=== PATIENT | male | born 1940 | race Two or more races ===

== ENCOUNTER 2017-06-26 17:46 | Emergency (ER) | payer OTHER ==
[~2017-06-26] VITALS: Ht 175.3 cm; Wt 68.0 kg
[2017-06-26 18:41] VITALS: BP 136/78
[2017-06-26] MEDS ORDERED: MEPERIDINE HCL (25 MG/ML) 1ML VIAL IM ONE (19:45)
[2017-06-26] MEDS ORDERED: cefTRIAXone SOD 1,000 MG VL IM ONE (19:45)
[2017-06-26] MEDS ORDERED: ONDANSETRON HCL 4 MG/2 ML VIAL IM ONE (19:45)
[2017-06-26] MEDS ORDERED: HYDROcodone-ACET 10/325MG TAB PO ONE (20:00)
== END 2017-06-26 20:06 | disposition home or self-care (01) ==
LOC: ER 17:54
DX: K04.7 Periapical abscess without sinus (principal)
CPT/HCPCS: 96372; 99283; J0696

== ENCOUNTER → 2017-06-30 | Outpatient (CLI) | payer OTHER ==
[2017-06-30 13:46] LABS: Basophils # (auto) 0 uL; Basophils % (auto) 0.8 % (0.0-2.0); Eosinophils # (auto) 0.1 uL; Eosinophils % (auto) 1.8 % (0.0-7.0); Hematocrit 44.3 % (41.0-53.0); Hemoglobin 15.2 g/dL (13.5-17.5); Lymphocytes # (auto) 1.3 uL; Lymphocytes % (auto) 36.7 % (10.0-50.0); Mean Corpuscular Hemoglobin 30.8 pg (28.0-32.0); Mean Corpuscular Hgb Conc. 34.3 g/dL (32.0-36.0); Monocytes # (auto) 0.2 uL; Monocytes % (auto) 6.9 % (0.0-12.0); Neutrophils # (auto) 1.9 uL; Neutrophils % (auto) 53.8 % (37.0-80.0); Nucleated Red Blood Cells % 0.1 %; Platelet Count (auto) 161 10^3/uL (140-450); Red Blood Cells 4.92 10^6/uL (4.5-5.90); Red Cell Distribution Width 12.9 % (11.8-14.3); White Blood Cell 3.5 10^3/uL (4.4-10.8)
[2017-06-30 14:07] LABS: Albumin 3.7 g/dL (3.4-5.0); BUN/Creatinine Ratio 15.6; Bilirubin, Total 1.2 mg/dL (0.2-1.0); Calcium 8.5 mg/dL (8.5-10.1); Potassium 3.7 mmol/L (3.5-5.1); Total Protein 6.8 g/dL (6.4-8.2)
== END | disposition home or self-care (01) ==
LOC: LAB 13:17
DX: Z00.01 Encounter for general adult medical examination with abnormal findings (principal); I10 Essential (primary) hypertension
CPT/HCPCS: 36415; 80053; 80061; 82043; 83036; 84443; 85025

== ENCOUNTER 2017-07-09 02:57 | Emergency (ER) | payer OTHER ==
[~2017-07-09] VITALS: Ht 175.3 cm; Wt 81.6 kg
[2017-07-09 03:55] LABS: Basophils # (auto) 0 uL; Eosinophils # (auto) 0.1 uL; Eosinophils % (auto) 2.2 % (0.0-7.0); Hematocrit 40.9 % (41.0-53.0); Lymphocytes # (auto) 1.9 uL; Lymphocytes % (auto) 42.5 % (10.0-50.0); Mean Corpuscular Hemoglobin 30.7 pg (28.0-32.0); Mean Corpuscular Hgb Conc. 34.2 g/dL (32.0-36.0); Mean Corpuscular Volume 89.8 fL (80.0-100.0); Monocytes # (auto) 0.3 uL; Monocytes % (auto) 7.8 % (0.0-12.0); Neutrophils # (auto) 2.1 uL; Neutrophils % (auto) 46.5 % (37.0-80.0); Nucleated Red Blood Cells % 0.1 %; Platelet Count (auto) 201 10^3/uL (140-450); Red Blood Cells 4.55 10^6/uL (4.5-5.90); Red Cell Distribution Width 12.5 % (11.8-14.3); White Blood Cell 4.5 10^3/uL (4.4-10.8)
[2017-07-09 04:12] LABS: Albumin 3.5 g/dL (3.4-5.0); BUN/Creatinine Ratio 20.7; Potassium 4.1 mmol/L (3.5-5.1)
[2017-07-09 04:14] LABS: Bilirubin, Total 0.6 mg/dL (0.2-1.0); Total Protein 6.7 g/dL (6.4-8.2)
[2017-07-09 07:30] VITALS: BP 120/77
[2017-07-09] MEDS ORDERED: HYDROcodone-ACET 10/325MG TAB PO ONE (08:15)
[2017-07-09] MEDS ORDERED: cefTRIAXone W LIDOCAINE 1 GM IM IM ONE (08:15)
== END 2017-07-09 09:03 | disposition home or self-care (01) ==
LOC: ER 02:57
DX: K02.9 Dental caries, unspecified (principal); Z90.89 Acquired absence of other organs
CPT/HCPCS: 36415; 80053; 85025; 93005; 96372; 99285; J0696

== ENCOUNTER 2024-11-02 13:53 | Inpatient (IN) | payer OTHER ==
[~2024-11-02] VITALS: Ht 170.2 cm; Wt 68.0 kg
[2024-11-02 15:09] LABS: Hematocrit 47.2 % (41.0-53.0); Hemoglobin 16.2 g/dL (13.5-17.5); Mean Corpuscular Hemoglobin 30.3 pg (28.0-32.0); Mean Corpuscular Volume 88.5 fL (80.0-100.0); Nucleated Red Blood Cells % 0.3 %
[2024-11-02 15:24] LABS: Alanine Aminotransferase < 9 U/L (7-40); Albumin 4.5 g/dL (3.2-4.8); Alkaline Phosphatase 79 U/L (46-116); Anion Gap 9 (5-15); BUN/Creatinine Ratio 12.3 (10.0-20.0); Bilirubin, Total 1.7 mg/dL (0.2-1.0); Blood Urea Nitrogen 13 mg/dL (9-23); Calcium 9.0 mg/dL (8.7-10.4); Carbon Dioxide 28 mmol/L (20-31); Chloride 103 mmol/L (98-107); Glucose 168 mg/dL (74-106); Potassium 3.6 mmol/L (3.5-5.1); Sodium 140 mmol/L (136-145); Total Protein 7.3 g/dL (5.7-8.2)
[2024-11-02 15:27] LABS: Lactic Acid w/Reflex 3.2 mmol/L (0.4-2.0)
--- NOTE | 2024-11-02 16:57 | ED.PDOC ---
HPI (NEURO) HPI Comments 84-year-old male with a history of dementia who presents to the ED for chief complaint generalized weakness. Patient presents with daughter in-law who states patient has been having increasing weakness for the past month. Rwmfzkmg-ux-mhz states patient has been having decreased appetite, does not want to ambulate, stays in bed, and has been complaining of right buttock area pain for the past week. Znkslgjf-jd-spw states patient is normally active, ambulates regularly and enjoys eating food but progressively decreased his p.o. intake, and is now eating like a bird." Daughter in-law notes patient's son in January and concerned the patient may be depressed. Patient states he is not ambulating due to pain in his right buttock area. Patient in the ED presents in a wheelchair but is noted to be able to ambulate to [facility] for evaluation. Patient has noted heart rate of 104 and respiratory rate of 21 but otherwise stable vitals include temperature 98.5 F blood pressure 111/73 and O2 saturation of 97% of room air. Patient in the ED otherwise denies any other symptoms at this time. Chief Complaint: General Weakness Time Seen by MD: 16:54 Primary Care Provider: REMINGTON Reviewed Notes: Medications, Allergies Information Source: Patient, Relative Mode of Arrival: Wheelchair Past Medical History PAST MEDICAL HISTORY: Dementia Surgical History: Appendectomy Family History Family History: Unknown Social History Smoker: Non-Smoker Alcohol: Rarely Drugs: Denies Drug Use Lives In: Home Unable to Obtain due to: Dementia Physical Exam General Appearance: No Apparent Distress HEENT: Other (Pupils and face symmetric. Dry mucous membranes.) Neck: Full Range of Motion, Normal Inspection Respiratory: Lungs Clear, No Accessory Muscle Use, No Respiratory Distress, Normal Breath Sounds Cardiovascular: No Edema, No JVD, Regular Rate/Rhythm Breast Exam: Deferred Gastrointestinal: Non Tender, Soft Genitalia: Deferred Pelvic: Deferred Rectal: Deferred Extremities: Normal inspection, Normal range of motion, Non-tender, No pedal edema, Other (Right buttock pain with weight-bearing and ambulation. Right buttock, hip and lower extremity nontender.) Neurologic: Alert (Oriented x3 (baseline per family)), Normal Affect, Normal Mood, Other (Able to transfer from wheelchair to [facility] with the assistance. Straight leg raise test negative.) Cerebellar Function: NOT DONE Reflexes: NOT DONE Skin: Dry, Normal Color, Warm Lymphatic: NOT DONE Was a procedure done? Was a procedure done?: No Differential Diagnosis (SZ) General Weakness: Anemia, Dehydration, Electrolyte imbalance, Hypoglycemia, Other (UTI, sepsis failure to thrive, lumbar radiculopathy, DJD, muscle strain, muscle spasm, among others) X-Ray, Labs, Meds, VS Vital Signs Date Time Temp Pulse Resp B/P (MAP) Pulse Ox O2 Delivery O2 Flow Rate FiO2 11/02/24 22:02 81 12 100 Room Air* 0 21 11/02/24 21:25 98.2 81 12 121/73 (89) 100 98.2 11/02/24 19:44 68 14 131/75 (93) 100 11/02/24 14:00 98.5 104 21 111/73 97 98.5 Lab Test 11/02/24 17:00 11/02/24 16:32 11/02/24 15:44 11/02/24 14:50 Range/Units Lactic Acid Level 1.7 3.2 *H 0.4-2.0 mmol/L Urine Color Yellow Yellow Urine Clarity Clear Clear Urine pH 5.5 5.0-9.0 Urine Specific [place] 1.017 1.001-1.035 Urine Protein Negative Negative Urine Ketones Negative Negative Urine Blood 1+ H Negative /uL Urine Nitrite Negative Negative Urine Bilirubin Negative Negative Urine Urobilinogen Normal Negative mg/dL Urine Leukocyte Esterase Negative Negative /uL Urine RBC 4 0 - 3 /hpf Urine Microscopic WBC 1 0-3 /HPF Urine Squamous Epithelial Cells None seen <5 /hpf Urine Bacteria None seen None Seen /hpf Urine Mucus Few None Seen Urine Glucose Normal Normal mg/dL Troponin I High Sensitivity < 3 L < 3 L </=54 ng/L White Blood Count 4.2 L 4.4-10.8 10^3/uL Red Blood Count 5.34 4.5-5.90 10^6/uL Hemoglobin 16.2 13.5-17.5 g/dL Hematocrit 47.2 41.0-53.0 % Mean Corpuscular Volume 88.5 80.0-100.0 fL Mean Corpuscular Hemoglobin 30.3 28.0-32.0 pg Mean Corpuscular Hemoglobin Concent 34.2 32.0-36.0 g/dL Red Cell Distribution Width 12.9 11.8-14.3 % Platelet Count 209 140-450 10^3/uL Mean Platelet Volume 8.2 6.9-10.8 fL Neutrophils (%) (Auto) 58.1 37.0-80.0 % Lymphocytes (%) (Auto) 33.6 10.0-50.0 % Monocytes (%) (Auto) 5.3 0.0-12.0 % Eosinophils (%) (Auto) 1.3 0.0-7.0 % Basophils (%) (Auto) 1.7 0.0-2.0 % Neutrophils # (Auto) 2.5 1.6-8.6 10 ^3/uL Lymphocytes # (Auto) 1.4 0.4-5.4 10 ^3/uL Monocytes # (Auto) 0.2 0-1.3 10 ^3/uL Eosinophils # (Auto) 0.1 0-0.8 10 ^3/uL Basophils # (Auto) 0.1 0-0.2 10 ^3/uL Nucleated Red Blood Cells 0.3 % Sodium Level 140 136-145 mmol/L Potassium Level 3.6 3.5-5.1 mmol/L Chloride Level 103 98-107 mmol/L Carbon Dioxide Level 28 20-31 mmol/L Anion Gap 9 5-15 Blood Urea Nitrogen 13 9-23 mg/dL Creatinine 1.06 0.700-1.30 mg/dL Glomerular Filtration Rate Calc 69 >90 mL/min BUN/Creatinine Ratio 12.3 10.0-20.0 Serum Glucose 168 H 74-106 mg/dL Calcium Level 9.0 8.7-10.4 mg/dL Total Bilirubin 1.7 H 0.2-1.0 mg/dL Aspartate Amino Transferase (AST) 20 13-40 U/L Alanine Aminotransferase (ALT) < 9 7-40 U/L Alkaline Phosphatase 79 46-116 U/L B-Type Natriuretic Peptide 127.26 0-100 pg/mL Total Protein 7.3 5.7-8.2 g/dL Albumin 4.5 3.2-4.8 g/dL Current Medications Medications (Trade) Dose Ordered Sig/Anni Route Start Time Stop Time Status Last Admin Lactated Ringer's 2,000 ml @ 2,000 mls/hr ONCE ONCE IV 11/02/24 17:00 11/02/24 17:59 DC 11/02/24 21:51 [place] [id number] Ph: [phone] DIAGNOSTIC IMAGING Diagnostic Imaging Report : [id number] Signed PATIENT: MARGOTH LEVIN SR VACCT: [id number] UNIT: [id number] : 1940 LOC: ER ROOM / BED: / AGE / SEX: 84 / M ADM STATUS: REG ER SERVICE 51 ORDERING PHYSICIAN: CAS CALLES MD PROCEDURE(s): CXRP - CHEST PORTABLE REASON: gen weak ORDER NUMBER(s): [id number], ACCESSION NUMBER(s): [id number] CHEST RADIOGRAPH Indication: gen weak Technique: Single frontal view of the chest was obtained COMPARISON: None FINDINGS: Lines and Tubes: None Lungs: Congestion Pleura: No effusion. No pneumothorax. Cardiomediastinal contours: Unremarkable Bones: Unremarkable IMPRESSION: Increased interstital prominence. This may represent pulmonary vascular congestion and/or viral pneumonia. Clinical correlation advised. ATED BY: CHARLES GARCÍA MD DICTATED DATE/TIME: 11/02/241717 SIGNED BY: CHARLES GARCÍA MD SIGNED DATE/TIME: 11/02/241717 CC: [place] [address] Ph: [phone] DIAGNOSTIC IMAGING Diagnostic Imaging Report : [id number] Signed PATIENT: MARGOTH LEVIN SR VACCT: [id number] UNIT: [id number] : 1940 LOC: ER ROOM / BED: / AGE / SEX: 84 / M ADM STATUS: REG ER SERVICE 52 ORDERING PHYSICIAN: CAS CALLES MD PROCEDURE(s): ABPL - CT AB PEL WO CON-NO ORAL OR IV REASON: L pelvic/ buttock area pain ORDER NUMBER(s): [id number], ACCESSION NUMBER(s): [id number] Exam: CT CT AB PEL WO CON-NO ORAL OR IV History: L pelvic/ buttock area pain Comparison Study: None TECHNIQUE: Multidetector CT of the abdomen was performed from lung bases to pubic symphysis. Imaging was performed without IV contrast. Axial, coronal and sagittal multiplanar reformats were obtained from the axial data set by the technologist. Radiation Dose Information: CT Dose: CTDI volume is 5.9 mGy. Dose-length product is 274.66 mGy*cm FINDINGS: Evaluation of solid organs is limited due to lack of intravenous contrast use. Findings: Lung Bases: No acute or significant lung base finding. Normal heart size. No pleural or pericardial effusion. Liver: The liver is normal in size. No focal lesions. Gallbladder and Biliary Tree: Unremarkable Spleen: Unremarkable Pancreas: The pancreas is grossly normal in appearance. Adrenal Glands: Unremarkable Kidneys: Kidneys are grossly normal without calculi or hydronephrosis. Bladder: Grossly unremarkable for degree of distention. Bowel: The stomach is grossly normal in appearance. Small bowel and colon are normal in caliber and distribution. The appendix is not visualized; however, no secondary findings of acute appendicitis identified. Ascites: Absent Lymphadenopathy: No mesenteric, retroperitoneal or periportal lymphadenopathy. Abdominal Wall and Mesentery: Unremarkable. Vasculature: The visualized abdominal aorta is normal in size and caliber. Evaluation of abdominal and pelvic vessels is limited due to lack of intravenous contrast. Pelvic Organs: Prostate measures 5.7 x 4.4 cm and is partially calcified. Fall findings surgical repair of a left inguinal hernia correlate with surgical history. No findings of recurrence or abscess formation. Musculoskeletal: No aggressive focal bony lesions, acute fractures or dislocation. No left gluteal masses or masses in the subcutaneous fat of the gluteal tissue on the right or left. Soft tissues: Unremarkable IMPRESSION: 1. Appear to be postoperative changes from previous left hernia repair. No recurrence noted. No subcutaneous masses or abscess formation. 2. Soft tissues of the right and left gluteal area appear normal with no inflammatory changes in the subcutaneous fat. Radiation optimization: All CT scans at this facility use at least one of these dose optimization techniques: automated exposure control mA and/or kV adjustment per patient size (includes targeted exams where dose is matched to clinical indication) or iterative reconstruction. ATED BY: DELFINA ROCA Jr., DO DICTATED DATE/TIME: 11/02/24 0394 SIGNED BY: DELFINA ROCA Jr., DO SIGNED DATE/TIME: 11/02/24 6359 CC: [facility] [id number] [place] [id number] Ph: [phone] DIAGNOSTIC IMAGING Diagnostic Imaging Report : [id number] Signed PATIENT: MARGOTH LEVIN SR VACCT: [id number] UNIT: [id number] : 1940 LOC: ER ROOM / BED: / AGE / SEX: 84 / M ADM STATUS: REG ER SERVICE 165 ORDERING PHYSICIAN: CAS CALLES MD PROCEDURE(s): LS2CT - LS SPINE WO CONTRAST REASON: L buttock pain ORDER NUMBER(s): [id number], ACCESSION NUMBER(s): [id number] EXAM: CT LS SPINE WO CONTRAST INDICATION: L buttock pain TECHNIQUE: Axial images of the lumbar spine have been obtained along with coronal and sagittal reformatted images. CT scans at this facility use dose modulation, iterative reconstruction, and/or weight based dosing when appropriate to reduce radiation dose to as low as reasonably achievable. COMPARISON: CT abdomen and pelvis 11/02/2024 FINDINGS: Okb-wan-mhjrohh lumbar-type vertebrae. Mild straightening of the lumbar lordosis. Minimal levoconvex curvature of the lumbar spine. Vertebral body heights are maintained. No evidence of acute traumatic fractures or spondylolisthesis. T12-L1: No significant spinal canal or neural foramina stenosis. L1-L2: Minimal posterior disc bulge without significant spinal canal or neural foramina stenosis. L2-L3: Minimal posterior disc bulge without significant spinal canal stenosis. Mild left cthu-jq-rvvyyulo right-sided neural foramina stenosis. L3-L4: Minimal posterior disc bulge without significant spinal canal stenosis. Moderate right and afzm-kq-cvpphmgb left-sided neural foramina stenosis. L4-L5: Minimal posterior disc bulge without significant spinal canal stenosis. Nepj-uk-eebbgmcj right with mild left-sided neural foramina stenosis. L5-S1: Mild posterior disc osteophyte complex without significant spinal canal stenosis. Moderate left with severe right-sided neural foramina stenosis. Paraspinal muscles unremarkable. Partially visualized prominent prostate with calcifications. Moderate to heavy atherosclerotic calcification of the aorta. IMPRESSION: No evidence of acute traumatic fractures or spondylolisthesis. 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 Moderate right-sided neural foramina stenosis at L3-L4. MRI should be considered for further evaluation. ATED BY: FADUMO WETZEL DO DICTATED DATE/TIME: 11/02/241753 SIGNED BY: FADUMO WETZEL DO SIGNED DATE/TIME: 11/02/241753 CC: X-Ray, Labs, Meds, VS Comment 84-year-old male with a history of dementia brought in by family complaining of progressively worsening generalized weakness decreased p.o. intake over the past month, associated with right buttock pain and difficulty ambulating over the past week. Initial vitals remarkable for heart rate 104, respiratory rate 21 Exam remarkable for pain localized to the right buttock area with weight-bearing on the right lower extremity and with ambulation Rhythm strip independently interpreted by me: Sinus tach, rate 104, no ectopy. Chest x-ray one view Increased interstital prominence. This may represent pulmonary vascular congestion and/or viral pneumonia. Clinical correlation advised. CT pelvis unremarkable for any abnormality of acute significance CT lumbar spine remarkable for Moderate left with severe right-sided neural foramina stenosis at L5-S1. Moderate right-sided neural foramina stenosis at L3- L4. MRI should be considered for further evaluation. CBC, CMP, troponins and UA unremarkable. First lactate 3.2, 1.7 on repeat Patient treated with the following in the ED: 30 cc/kilogram LR bolus, cefepime 2 g IV, morphine 4 mg IV, Zofran 4 mg IV On re-evaluation, tachycardia and tachypnea have resolved. Vitals were stable, pain has improved. Plan is to admit the patient for spine MRI, pain control, IV hydration and IV antibiotics to cover for possible sepsis. Time of 1ST Reevaluation: 21:32 Reevaluation 1ST: Improved Patient Education/Counseling: Diagnosis, Treatment, Prognosis, Need For Follow Up Family Education/Counseling: Diagnosis, Treatment, Prognosis, Need For Follow Up Sepsis Initial Screening Date: Nov 02, 2024 Time of Initial Screenin Temp<36 C (96.8 F) or >38.3 C: No Respiratory Rate >20: No Heart Rate >90: Yes SBP <90 or MAP <65 mmHG: No New Acute Mental Status Change: No Is the patient on CPAP, BIPAP,: No Departure 1 Departure Time of Disposition: 20:00 Impression: Primary Impression: Failure to thrive Qualified Codes: R62.7 - Adult failure to thrive Additional Impressions: Lumbosacral radiculitis Elevated lactic acid level Disposition: ADMITTED INPATIENT Admit to: Tele Condition: Guarded Critical Care Note Critical Care Time?: No Stability Stability form required: No Heart Score Heart Score: Heart Score Response (Comments) Value History N/A 0 EKG N/A 0 Age N/A 0 Risk Factors N/A 0 Troponin N/A 0 Total 0 Sepsis Sepsis Reasesment Focused Exam Sepsis focused exam: time: (1700) Orders: Laboratory Tests 11/02/24 14:50: Lactic Acid Level 3.2 11/02/24 17:00: Lactic Acid Level 1.7 Recent Procedure: No On Antibiotic Therapy: No Respiratory Rate >20: Yes Heart Rate >90: Yes Temp<36 C (96.8 F) or >38.3 C: No SBP <90 or MAP <65 mmHG: No New Acute Mental Status Change: No Is the patient on CPAP, BIPAP,: No IV fluid given: Yes I personally scribed for CAS CALLES MD ([facility]) on 11/02/24 at 16:57. Electronically submitted by Sarita Bran ([facility]). I personally scribed for CAS CALLES MD ([facility]) on 11/02/24 at 19:12. Electronically [facility] by [facility] CAS CALLES MD Nov 02, 2024 16:57
--- NOTE | 2024-11-02 17:20 | DVH ---
CHEST RADIOGRAPH Indication: gen weak Technique: Single frontal view of the chest was obtained COMPARISON: None FINDINGS: Lines and Tubes: None Lungs: Congestion Pleura: No effusion. No pneumothorax. Cardiomediastinal contours: Unremarkable Bones: Unremarkable IMPRESSION: Increased interstital prominence. This may represent pulmonary vascular congestion and/or viral pneum onia. Clinical correlation advised.
--- NOTE | 2024-11-02 17:42 | DVH ---
Exam: CT CT AB PEL WO CON-NO ORAL OR IV History: L pelvic/ buttock area pain Comparison Study: None TECHNIQUE: Multidetector CT of the abdomen was performed from lung bases to pubic symphysis. Imaging was performed without IV contrast. Axial, coronal and sagittal multiplanar reformats were obtained fr om the axial data set by the technologist. Radiation Dose Information: CT Dose: CTDI volume is 5.9 mGy. Dose-length product is 274.66 mGy*cm FINDINGS: Evaluation of solid organs is limited due to lack of intravenous contrast use. Findings: Lung Bases: No acute or significant lung base finding. Normal heart size. No pleural or pericardial effusion. Liver: The liver is normal in size. No focal lesions. Gallbladder and Biliary Tree: Unremarkable Spleen: Unremarkable Pancreas: The pancreas is grossly normal in appearance. Adrenal Glands: Unremarkable Kidneys: Kidneys are grossly normal without calculi or hydronephrosis. Bladder: Grossly unremarkable for degree of distention. Bowel: The stomach is grossly normal in appearance. Small bowel and colon are normal in caliber and d istribution. The appendix is not visualized; however, no secondary findings of acute appendicitis id entified. Ascites: Absent Lymphadenopathy: No mesenteric, retroperitoneal or periportal lymphadenopathy. Abdominal Wall and Mesentery: Unremarkable. Vasculature: The visualized abdominal aorta is normal in size and caliber. Evaluation of abdominal a nd pelvic vessels is limited due to lack of intravenous contrast. Pelvic Organs: Prostate measures 5.7 x 4.4 cm and is partially calcified. Fall findings surgical rep air of a left inguinal hernia correlate with surgical history. No findings of recurrence or abscess f ormation. Musculoskeletal: No aggressive focal bony lesions, acute fractures or dislocation. No left gluteal ma sses or masses in the subcutaneous fat of the gluteal tissue on the right or left. Soft tissues: Unremarkable IMPRESSION: 1. Appear to be postoperative changes from previous left hernia repair. No recurrence noted. No subc utaneous masses or abscess formation. 2. Soft tissues of the right and left gluteal area appear normal with no inflammatory changes in the subcutaneous fat. Radiation optimization: All CT scans at this facility use at least one of these dose optimization te chniques: automated exposure control mA and/or kV adjustment per patient size (includes targeted exa ms where dose is matched to clinical indication) or iterative reconstruction.
--- NOTE | 2024-11-02 17:56 | DVH ---
EXAM: CT LS SPINE WO CONTRAST INDICATION: L buttock pain TECHNIQUE: Axial images of the lumbar spine have been obtained along with coronal and sagittal reform atted images. CT scans at this facility use dose modulation, iterative reconstruction, and/or weight based dosing when appropriate to reduce radiation dose to as low as reasonably achievable. COMPARISON: CT abdomen and pelvis 11/02/2024 FINDINGS: Bxk-wbh-vizmaps lumbar-type vertebrae. Mild straightening of the lumbar lordosis. Minimal levoconvex curvature of the lumbar spine. Vertebral body heights are maintained. No evidence of acute traumatic fractures or spondylolisthesis. T12-L1: No significant spinal canal or neural foramina stenosis. L1-L2: Minimal posterior disc bulge without significant spinal canal or neural foramina stenosis. L2-L3: Minimal posterior disc bulge without significant spinal canal stenosis. Mild left fvta-ip-qfvw rate right-sided neural foramina stenosis. L3-L4: Minimal posterior disc bulge without significant spinal canal stenosis. Moderate right and mil y-bu-ffhmdbre left-sided neural foramina stenosis. L4-L5: Minimal posterior disc bulge without significant spinal canal stenosis. Ewes-ro-ajztipzf right with mild left-sided neural foramina stenosis. L5-S1: Mild posterior disc osteophyte complex without significant spinal canal stenosis. Moderate lef t with severe right-sided neural foramina stenosis. Paraspinal muscles unremarkable. Partially visualized prominent prostate with calcifications. Moderate to heavy atherosclerotic calcif ication of the aorta. IMPRESSION: No evidence of acute traumatic fractures or spondylolisthesis. 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 Moderate right-sided neural foramina stenosis at L3-L4. MRI should be considered for further evaluation.
[2024-11-02 19:51] LABS: Urine Protein, UAD Negative (Negative)
[2024-11-02] MEDS: MORPHINE SULFATE 4 MG/ML SYR/VIAL IV ONE (21:51)
[2024-11-02] MEDS: LACTATED RINGER'S 2,000 ML IV ONE (21:51)
[2024-11-02] MEDS: ONDANSETRON HCL 4 MG/2 ML VIAL IV ONE (21:52)
[2024-11-02 22:02] VITALS: PULSE 81; RESP 12; O2SAT 100
[2024-11-02] MEDS: CEFEPIME 1GM/50ML 50 ML IV ONE (23:12)
[2024-11-02] MEDS ORDERED: NITROGLYCERIN 0.4 MG SL TAB SL PRN (23:30)
[2024-11-02] MEDS ORDERED: MORPHINE SULFATE INJ 2 MG/ml SYRG IV PRN (23:30)
[2024-11-02] MEDS ORDERED: ONDANSETRON HCL 4 MG/2 ML VIAL IV PRN (23:30)
[2024-11-02] MEDS ORDERED: HYDROcodone-ACET 5/325MG TAB PO PRN (23:30)
[2024-11-02] MEDS ORDERED: ACETAMINOPHEN 325 MG TAB PO PRN (23:30)
[2024-11-03] VITALS (12 sets, daily range): BP systolic 122–136; BP diastolic 67–90; PULSE 62–80; RESP 16–18; TEMP 97.6–98.1; O2SAT 95–100
--- NOTE | 2024-11-03 03:41 | DVHHP2 ---
History of Present Illness Reason for Visit: Generalized weakness History of Present Illness 84-year-old male presents for evaluation of generalized weakness. Per vvkggrth-[id number] patient has been progressively becoming more confused and weak. He is refusing to eat or get out of bed. She states over the past one-week he has become worse patient currently alert oriented x2. She also states the patient has been reporting pain his lower back is refusing to ambulate. Past Medical History Dementia Past Surgical History Appendectomy Family History Noncontributory Smoke: No ALCOHOL: none Drugs: None Lives: with Family Review of Systems Review of Systems Review of systems are currently negative otherwise addressed in HPI. Allergies: Coded Allergies: NO KNOWN ALLERGIES (Unverified , 06/26/17) Medications Current Medications Medications Dose Ordered Sig/Anni Route Start Time Stop Time Status Last Admin Dose Admin Cefepime HCl 50 ml @ 12.5 mls/hr Q12H IV 11/03/24 05:00 Acetaminophen/ Hydrocodone Bitart 1 tab Q4HP PRN PO 11/02/24 23:30 Ondansetron HCl 4 mg Q4HP PRN IV 11/02/24 23:30 Enoxaparin Sodium 40 mg DAILY SC 11/03/24 10:00 Acetaminophen 650 mg Q6HP PRN PO 11/02/24 23:30 Nitroglycerin 0.4 mg Q5MINP PRN SL 11/02/24 23:30 Morphine Sulfate 2 mg Q30M PRN IV 11/02/24 23:30 Exam Vital Signs Vital Signs Date Time Temp Pulse Resp B/P (MAP) Pulse Ox O2 Delivery O2 Flow Rate FiO2 11/03/24 02:36 98.3 78 18 120/74 (89) 99 98.3 11/02/24 22:02 Room Air* 0 21 Exam Gen: 84-year-old male in no apparent distress, confused Skin: Warm, dry, normal color and texture, no rash. HEENT: Normocephalic atraumatic, mucous membranes moist and pink. Neck: Cervical and supraclavicular nodes normal without enlargement, trachea is midline, thyroid gland is normal without masses. Pulmonary: Clear to auscultation and percussion bilaterally. Cardiac: Regular rate and rhythm. No murmur Abdomen: Soft, nontender, nondistended, bowel sounds present all 4 quadrants, no guarding, no rigidity, no organomegaly. Extremities: No cyanosis, clubbing, no edema Neuro: Cranial nerves II through XII grossly intact, normal affect and speech, no focal motor deficits. Labs/Xrays ORDERING PHYSICIAN: CAS CALLES MD PROCEDURE(s): ABPL - CT AB PEL WO CON-NO ORAL OR IV REASON: L pelvic/ buttock area pain ORDER NUMBER(s): [id number], ACCESSION NUMBER(s): [id number] Exam: CT CT AB PEL WO CON-NO ORAL OR IV History: L pelvic/ buttock area pain Comparison Study: None TECHNIQUE: Multidetector CT of the abdomen was performed from lung bases to pubic symphysis. Imaging was performed without IV contrast. Axial, coronal and sagittal multiplanar reformats were obtained from the axial data set by the technologist. Radiation Dose Information: CT Dose: CTDI volume is 5.9 mGy. Dose-length product is 274.66 mGy*cm FINDINGS: Evaluation of solid organs is limited due to lack of intravenous contrast use. Findings: Lung Bases: No acute or significant lung base finding. Normal heart size. No pleural or pericardial effusion. Liver: The liver is normal in size. No focal lesions. Gallbladder and Biliary Tree: Unremarkable Spleen: Unremarkable Pancreas: The pancreas is grossly normal in appearance. Adrenal Glands: Unremarkable Kidneys: Kidneys are grossly normal without calculi or hydronephrosis. Bladder: Grossly unremarkable for degree of distention. Bowel: The stomach is grossly normal in appearance. Small bowel and colon are normal in caliber and distribution. The appendix is not visualized; however, no secondary findings of acute appendicitis identified. Ascites: Absent Lymphadenopathy: No mesenteric, retroperitoneal or periportal lymphadenopathy. Abdominal Wall and Mesentery: Unremarkable. Vasculature: The visualized abdominal aorta is normal in size and caliber. Evaluation of abdominal and pelvic vessels is limited due to lack of intravenous contrast. Pelvic Organs: Prostate measures 5.7 x 4.4 cm and is partially calcified. Fall findings surgical repair of a left inguinal hernia correlate with surgical history. No findings of recurrence or abscess formation. Musculoskeletal: No aggressive focal bony lesions, acute fractures or dislocation. No left gluteal masses or masses in the subcutaneous fat of the gluteal tissue on the right or left. Soft tissues: Unremarkable IMPRESSION: 1. Appear to be postoperative changes from previous left hernia repair. No recurrence noted. No subcutaneous masses or abscess formation. 2. Soft tissues of the right and left gluteal area appear normal with no inflammatory changes in the subcutaneous fat. Radiation optimization: All CT scans at this facility use at least one of these dose optimization techniques: automated exposure control mA and/or kV adjustment per patient size (includes targeted exams where dose is matched to clinical indication) or iterative reconstruction. RING PHYSICIAN: CAS CALLES MD PROCEDURE(s): LS2CT - LS SPINE WO CONTRAST REASON: L buttock pain ORDER NUMBER(s): [id number], ACCESSION NUMBER(s): [id number] EXAM: CT LS SPINE WO CONTRAST INDICATION: L buttock pain TECHNIQUE: Axial images of the lumbar spine have been obtained along with coronal and sagittal reformatted images. CT scans at this facility use dose modulation, iterative reconstruction, and/or weight based dosing when appropriate to reduce radiation dose to as low as reasonably achievable. COMPARISON: CT abdomen and pelvis 11/02/2024 FINDINGS: Hzl-vjg-bugjgyd lumbar-type vertebrae. Mild straightening of the lumbar lordosis. Minimal levoconvex curvature of the lumbar spine. Vertebral body heights are maintained. No evidence of acute traumatic fractures or spondylolisthesis. T12-L1: No significant spinal canal or neural foramina stenosis. L1-L2: Minimal posterior disc bulge without significant spinal canal or neural foramina stenosis. L2-L3: Minimal posterior disc bulge without significant spinal canal stenosis. Mild left bpgf-xd-mzuyiuxb right-sided neural foramina stenosis. L3-L4: Minimal posterior disc bulge without significant spinal canal stenosis. Moderate right and eguv-kn-uyypoadw left-sided neural foramina stenosis. L4-L5: Minimal posterior disc bulge without significant spinal canal stenosis. Vluc-tn-jtawgmrv right with mild left-sided neural foramina stenosis. L5-S1: Mild posterior disc osteophyte complex without significant spinal canal stenosis. Moderate left with severe right-sided neural foramina stenosis. Paraspinal muscles unremarkable. Partially visualized prominent prostate with calcifications. Moderate to heavy atherosclerotic calcification of the aorta. IMPRESSION: No evidence of acute traumatic fractures or spondylolisthesis. 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 Moderate right-sided neural foramina stenosis at L3-L4. MRI should be considered for further evaluation. Labs Test 11/02/24 17:00 11/02/24 16:32 11/02/24 15:44 11/02/24 14:50 Range/Units Lactic Acid Level 1.7 0.4-2.0 mmol/L Urine Color Yellow Yellow Urine Clarity Clear Clear Urine pH 5.5 5.0-9.0 Urine Specific [place] 1.017 1.001-1.035 Urine Protein Negative Negative Urine Ketones Negative Negative Urine Blood 1+ H Negative /uL Urine Nitrite Negative Negative Urine Bilirubin Negative Negative Urine Urobilinogen Normal Negative mg/dL Urine Leukocyte Esterase Negative Negative /uL Urine RBC 4 0 - 3 /hpf Urine Microscopic WBC 1 0-3 /HPF Urine Squamous Epithelial Cells None seen <5 /hpf Urine Bacteria None seen None Seen /hpf Urine Mucus Few None Seen Urine Glucose Normal Normal mg/dL Troponin I High Sensitivity < 3 L </=54 ng/L White Blood Count 4.2 L 4.4-10.8 10^3/uL Red Blood Count 5.34 4.5-5.90 10^6/uL Hemoglobin 16.2 13.5-17.5 g/dL Hematocrit 47.2 41.0-53.0 % Mean Corpuscular Volume 88.5 80.0-100.0 fL Mean Corpuscular Hemoglobin 30.3 28.0-32.0 pg Mean Corpuscular Hemoglobin Concent 34.2 32.0-36.0 g/dL Red Cell Distribution Width 12.9 11.8-14.3 % Platelet Count 209 140-450 10^3/uL Mean Platelet Volume 8.2 6.9-10.8 fL Neutrophils (%) (Auto) 58.1 37.0-80.0 % Lymphocytes (%) (Auto) 33.6 10.0-50.0 % Monocytes (%) (Auto) 5.3 0.0-12.0 % Eosinophils (%) (Auto) 1.3 0.0-7.0 % Basophils (%) (Auto) 1.7 0.0-2.0 % Neutrophils # (Auto) 2.5 1.6-8.6 10 ^3/uL Lymphocytes # (Auto) 1.4 0.4-5.4 10 ^3/uL Monocytes # (Auto) 0.2 0-1.3 10 ^3/uL Eosinophils # (Auto) 0.1 0-0.8 10 ^3/uL Basophils # (Auto) 0.1 0-0.2 10 ^3/uL Nucleated Red Blood Cells 0.3 % Sodium Level 140 136-145 mmol/L Potassium Level 3.6 3.5-5.1 mmol/L Chloride Level 103 98-107 mmol/L Carbon Dioxide Level 28 20-31 mmol/L Anion Gap 9 5-15 Blood Urea Nitrogen 13 9-23 mg/dL Creatinine 1.06 0.700-1.30 mg/dL Glomerular Filtration Rate Calc 69 >90 mL/min BUN/Creatinine Ratio 12.3 10.0-20.0 Serum Glucose 168 H 74-106 mg/dL Calcium Level 9.0 8.7-10.4 mg/dL Total Bilirubin 1.7 H 0.2-1.0 mg/dL Aspartate Amino Transferase (AST) 20 13-40 U/L Alanine Aminotransferase (ALT) < 9 7-40 U/L Alkaline Phosphatase 79 46-116 U/L B-Type Natriuretic Peptide 127.26 0-100 pg/mL Total Protein 7.3 5.7-8.2 g/dL Albumin 4.5 3.2-4.8 g/dL SEPSIS Sepsis Screen Date sepsis recognized/suspect: Nov 02, 2024 Time Sepsis recognized/suspect: 1404 Recent Procedure: No On Antibiotic Therapy: No Respiratory Rate >20: Yes Heart Rate >90: Yes Temp<36 C (96.8 F) or >38.3 C: No SBP <90 or MAP <65 mmHG: No New Acute Mental Status Change: No Is the patient on CPAP, BIPAP,: No IV fluid challenge completed?: Yes Physician Orders Lumbar Spine Wo Contrast (11/02/24 23:19) Basic Metabolic Panel (11/03/24 04:00) Pt Request For Service (11/02/24 23:19) Admit (11/02/24 23:19) Hydrocodone-Acet 5/325mg Tab (Henry 5/32 (11/02/24 23:30) Ondansetron Hcl (Zofran) (11/02/24 23:30) Enoxaparin Sodium (Lovenox) (11/03/24 10:00) Cardiac Diet-2gna,Lofat,Lochol (11/03/24 Breakfast) Condition: Stable (11/02/24 23:19) Acetaminophen Tablet (Tylenol Tablet) (11/02/24 23:30) Bedrest With Bathroom Privileg (11/02/24 23:19) Nitroglycerin Sublingual (Ntrostat Subli (11/02/24 23:30) Morphine Sulfate Injection (11/02/24 23:30) Stat Ekg For Chest Pain (11/02/24 23:19) Notify Of Changes From Base (11/02/24 23:19) Bomb Squad Officer For 24 Hours (11/02/24 23:19) Emergency Dysrhythmia Protocol (11/02/24 23:19) Rhythm Strips Once Every Shift (11/02/24 23:19) Oxygen By Nasal Cannula (11/02/24 23:19) Vital Signs Date Time Temp Pulse Resp B/P (MAP) Pulse Ox O2 Delivery O2 Flow Rate FiO2 11/03/24 02:36 98.3 78 18 120/74 (89) 99 98.3 11/02/24 22:02 81 12 100 Room Air* 0 21 11/02/24 21:25 98.2 81 12 121/73 (89) 100 98.2 11/02/24 19:44 68 14 131/75 (93) 100 Laboratory Tests Test 11/02/24 17:00 Lactic Acid Level 1.7 mmol/L (0.4-2.0) Medications Medications Dose Ordered Sig/Anni Route Start Time Stop Time Status Last Admin Dose Admin Cefepime HCl 50 ml @ 50 mls/hr ONCE ONCE IV 11/02/24 17:00 11/02/24 17:59 DC 11/02/24 23:12 50 MLS/HR Lactated Ringer's 2,000 ml @ 2,000 mls/hr ONCE ONCE IV 11/02/24 17:00 11/02/24 17:59 DC 11/02/24 21:51 2,000 MLS/HR Assessment/Plan Assessment/Plan Assessment Failure to thrive Lumbar radiculopathy Dementia Plan Admit the patient to [facility] to the hospitalist MRI of the brain pending Physical therapy eval Pain management Continue treatment per orders. Plan discussed with: Other My Orders Orders - JOHN MESA Procedure Category Date Status Time Lumbar Spine Wo MRI 11/02/24 Logged Contrast 23:19 Basic Metabolic Panel LAB 11/03/24 Logged 04:00 Pt Request For Service PT 11/02/24 Logged 23:19 Admit ADMIT 11/02/24 Transmitted 23:19 Hydrocodone-Acet PHA 11/02/24 In Process 5/325mg Tab (Henry 23:30 Ondansetron Hcl PHA 11/02/24 In Process (Zofran) 23:30 Enoxaparin Sodium PHA 11/03/24 In Process (Lovenox) 10:00 Cardiac DIET 11/03/24 Transmitted Diet-2gna,Lofat,Lochol Breakfast Condition: Stable MARIA DEL CARMEN 11/02/24 In Process 23:19 Acetaminophen Tablet PHA 11/02/24 In Process (Tylenol Tablet) 23:30 Bedrest With Bathroom MARIA DEL CARMEN 11/02/24 In Process Privileg 23:19 Nitroglycerin PHA 11/02/24 In Process Sublingual (Ntrostat 23:30 Morphine Sulfate PHA 11/02/24 In Process Injection 23:30 Stat Ekg For Chest MARIA DEL CARMEN 11/02/24 In Process Pain 23:19 Notify Md Of Changes MARIA DEL CARMEN 11/02/24 In Process From Base 23:19 Bomb Squad Officer For MARIA DEL CARMEN 11/02/24 In Process 24 Hours 23:19 Emergency Dysrhythmia MARIA DEL CARMEN 11/02/24 In Process Protocol 23:19 Rhythm Strips Once MARIA DEL CARMEN 11/02/24 In Process Every Shift 23:19 Oxygen By Nasal RT 11/02/24 Transmitted Cannula 23:19 Date of Service: Nov 02, 2024 Billing Provider: JOHN MESA Common Visit Codes: [id number] INP/OBS CARE (MOD) JOHN MESA Nov 03, 2024 03:41
[2024-11-03 04:46] LABS: Chloride 107 mmol/L (98-107); Potassium 4.1 mmol/L (3.5-5.1); Sodium 142 mmol/L (136-145)
[2024-11-03 04:47] LABS: Anion Gap 7 (5-15); Carbon Dioxide 28 mmol/L (20-31)
[2024-11-03 04:49] LABS: Calcium 8.5 mg/dL (8.7-10.4)
[2024-11-03 04:52] LABS: BUN/Creatinine Ratio 14.4 (10.0-20.0); Blood Urea Nitrogen 14 mg/dL (9-23); Glucose 96 mg/dL (74-106)
[2024-11-03] MEDS: CEFEPIME 1GM/50ML 50 ML IV SCH (05:14)
--- NOTE | 2024-11-03 09:44 | DVHPN2 ---
Subjective Patient is seen and examined at bedside, patient's fdembypy-ed-zib also present at bedside. Patient reports having episodes of confusion. Mild shortness of breath unable to walk generalized weakness. Does not go to the doctors regularly. Changes from previous H/P or p: No Changes Objective Vitals Vital Signs Date Time Temp Pulse Resp B/P (MAP) Pulse Ox O2 Delivery O2 Flow Rate FiO2 11/03/24 08:34 98.0 62 18 123/67 (85) 97 98.0 11/03/24 04:15 Room Air* 0 21 Intake/Output Intake and Output 11/03/24 07:00 Intake Total 0 ml Output Total 0 ml Balance 0 ml Intake Oral 0 ml Output Urine Total 0 ml General Appearance: Alert, Oriented X3, mild distress HEENT: Atraumatic Lungs: Other (Wheezing) Cardiovascular: Regular rate, Normal S1, Normal S2 Abdomen: Normal bowel sounds, Soft Rectal: Deferred Psych/Mental Status: Mental status NL Medications Current Medications Medications Dose Ordered Sig/Anni Route Start Time Stop Time Status Last Admin Dose Admin Acetaminophen/ Hydrocodone Bitart 1 tab Q4HP PRN PO 11/02/24 23:30 Ondansetron HCl 4 mg Q4HP PRN IV 11/02/24 23:30 Enoxaparin Sodium 40 mg DAILY SC 11/03/24 10:00 Acetaminophen 650 mg Q6HP PRN PO 11/02/24 23:30 Nitroglycerin 0.4 mg Q5MINP PRN SL 11/02/24 23:30 Morphine Sulfate 2 mg Q30M PRN IV 11/02/24 23:30 Azithromycin 250 mg DAILY PO 11/04/24 10:00 UNV Laboratory Results Laboratory Tests 11/02/24 14:50 11/03/24 03:44 Chemistry Test 11/02/24 14:50 11/03/24 03:44 Albumin 4.5 g/dL (3.2-4.8) Calcium Level 9.0 mg/dL (8.7-10.4) 8.5 mg/dL (8.7-10.4) L Total Protein 7.3 g/dL (5.7-8.2) Cardiac Markers Test 11/02/24 14:50 B-Type Natriuretic Peptide 127.26 pg/mL (0-100) LFT Test 11/02/24 14:50 Alanine Aminotransferase (ALT) < 9 U/L (7-40) Alkaline Phosphatase 79 U/L (46-116) Aspartate Amino Transferase (AST) 20 U/L (13-40) Total Bilirubin 1.7 mg/dL (0.2-1.0) H Urinalysis Test 11/02/24 16:32 Urine Color Yellow (Yellow) Urine Clarity Clear (Clear) Urine pH 5.5 (5.0-9.0) Urine Specific [place] 1.017 (1.001-1.035) Urine Protein Negative (Negative) Urine Ketones Negative (Negative) Urine Blood 1+ /uL (Negative) H Urine Nitrite Negative (Negative) Urine Bilirubin Negative (Negative) Urine Urobilinogen Normal mg/dL (Negative) Urine Leukocyte Esterase Negative /uL (Negative) Urine RBC 4 /hpf (0 - 3) Urine Microscopic WBC 1 /HPF (0-3) Urine Squamous Epithelial Cells None seen /hpf (<5) Urine Bacteria None seen /hpf (None Seen) Urine Mucus Few (None Seen) Urine Glucose Normal mg/dL (Normal) Assessment/Plan Assessment/Plan # Sepsis due to Viral PNA vs Gram Neg PNA - Zithromax - Lactic Acidosis and Tachycardic # Metabolic Encephalopathy - Possibly due to Sepsis # Lumbar Stenosis - Outpatient MRI # Goals of care discussion >18 mins FULL CODE Plan discussed with: Patient, Other (DTR In Law) My Orders Orders - DAR LOPEZ MD Procedure Category Date Status Time Azithromycin Tablet PHA 11/03/24 Logged (Zithromax Tablet) 09:45 Azithromycin Tablet PHA 11/04/24 Logged (Zithromax Tablet) 10:00 Thyroid Stimulating LAB 11/03/24 Logged Hormone 09:38 Vitamin B12 LAB 11/03/24 Logged 09:38 Folate (Folic Acid) LAB 11/03/24 Logged 09:38 Rapid Influenza A&B LAB 11/03/24 Logged 09:38 Dv Inhouse Covid19 BETH 11/03/24 Logged 09:38 Hemoglobin A1c LAB 11/03/24 Verified 09:40 Echo 2d Mode Cardiac US 11/03/24 Verified DOP 09:40 Date of Service: Nov 03, 2024 Billing Provider: DAR LOPEZ MD Common Visit Codes: [id number] INP/OBS CARE(HIGH) Secondary Visit Codes: [id number] CARE PLAN 30 MINUTES DAR LOPEZ MD Nov 03, 2024 09:44
[2024-11-03] MEDS: ENOXAPARIN SOD 40 MG/0.4 ML SYRINGE SC SCH (10:08)
[2024-11-03] MEDS: AZITHROMYCIN 250 MG TAB PO ONE (10:30)
--- NOTE | 2024-11-03 11:24 | DVH ---
PROCEDURE: MRI LUMBAR SPINE WO CONTRAST INDICATION: lower back pain Exam Date: 11/03/2024 10:12 AM COMPARISON: CT LS SPINE WO CONTRAST on DOS: 11/02/24 TECHNIQUE: MRI lumbar spine without intravenous contrast. FINDINGS: Multilevel disc degeneration. Alignment: Grade 1 anterolisthesis of L4 on L5. Vertebrae: Vertebral body height is well maintained without evidence of a recent compression fracture. Conus: Conus medullaris terminates at the L1-L2 level. Following levels detailed below: T12-L1: Disc desiccation. Mild left lateral recess stenosis. Severe bilateral foraminal stenosis wit h potential bilateral exiting T12 nerve root compression. Facet arthrosis. L1-2: Disc desiccation and disc bulge. Mild disc height loss. No spinal canal or neural foraminal stenosis. Facet arthrosis. L2-3: Disc desiccation and disc bulge. Mild disc height loss. Mild spinal canal s tenosis. Mild bilateral lateral recess stenosis. Mild bilateral foraminal stenosis. Facet arthrosis. L3-4: Disc desiccation and 6.05 mm disc bulge. Mild disc height loss. Mild spinal canal stenosis. Mild bilateral lateral recess stenosis. Mild bilateral foraminal stenosis. Facet art hrosis. L4-5: Grade 1 anterolisthesis of L4 on L5 by 3.6 mm. Disc desiccation and 5.3 mm disc bulge. Mild disc height loss. Moderate bilateral lateral recess stenosis. Moderate left and roshan re right foraminal stenosis with potential right exiting L4 nerve root compression. Facet arthrosis. L5-S1: Disc desiccation and disc bulge. Moderate disc height loss. Mild bilateral lateral recess stenosis. Moderate bilateral foraminal stenosis. Facet arthrosis. IMPRESSION: Multilevel disc degeneration. Multilevel spinal canal stenosis, most pronounced and mild at L3-L4. Multilevel lateral recess stenosis, most pronounced and moderate at L4-L5. Multilevel foraminal stenosis, most pronounced and severe at L4-L5 with potential right exiting L4 ne rve root compression.
--- NOTE | 2024-11-03 14:43 | DVHSR ---
APPROVED REPORT EXAM: Two-dimensional and M-mode echocardiogram with Doppler and color Doppler. Blood Pressure: 123/67 mmHg INDICATION CHF RISK FACTORS Height: 5' 7", Weight: 149 DIMENSIONS LVDd4.2 (3.8-5.7cm)LA (2D)3.9 (1.9-4.0cm)Aortic Root3.8 (2.0-3.7cm) LVDs3.2 (2.5-4.0cm)LA (MM) (1.9-4.0cm)Aortic Cusp Exc1.3 (1.5-2.0cm) EF (%) 45.0 (55-70%)Rt. Atrium4.2 (1.9-4.0cm)Asc. Aorta cm IVSd1.0 (0.7-1.1cm)RV (D) (1.8-2.4cm) PWd1.0 (0.7-1.1cm) Mitral Valve MitralMitral Stenosis E wave1.00m/sMV Mean GR.mmHg A wave0.50m/sMV Peak GR.mmHg E/A ratio2.02D MVAcm2 Aortic Valve Aortic ValveAortic Stenosis V10.80m/Mehran Mean GR.4mmHg V21.30m/Mehran Peak GR.7mmHg LVOT Diameter2.0 (1.8-2.4cm)Doppler AVA1.93cm2 AI P 1/2 Anic177.45ms Tricuspid Valve TR Velocity1.70m/s [id number] Conclusion lvef 50% RV enlarged biatrial enlargement mild aortic regurg
[2024-11-04] VITALS (8 sets, daily range): BP systolic 100–111; BP diastolic 62–72; PULSE 71–86; RESP 16; TEMP 97.8–98.2; O2SAT 94–100
[2024-11-04 09:20] LABS: COVID19 ANTIGEN SOFIA FIA NEGATIVE (NEGATIVE)
[2024-11-04] MEDS: AZITHROMYCIN 250 MG TAB PO SCH (09:35)
[2024-11-04] MEDS ORDERED: AZIT-43 PO (10:45)
[2024-11-04] MEDS ORDERED: CEPH250C PO (10:45)
--- NOTE | 2024-11-04 10:48 | DVHDS2 ---
Discharge Summary Date of Admission Nov 02, 2024 at 23:19 Date of Discharge: Nov 04, 2024 Admitting Diagnosis Sepsis Labs/Diagnostic Data: Laboratory Results Test 11/03/24 11:35 11/03/24 06:40 11/03/24 03:44 11/02/24 17:00 Influenza Type A Antigen Negative (Negative) Influenza Type B Antigen Negative (Negative) SARS-CoV-2 Antigen (Rapid) Negative (NEGATIVE) Sodium Level 142 mmol/L (136-145) Potassium Level 4.1 mmol/L (3.5-5.1) Chloride Level 107 mmol/L (98-107) Carbon Dioxide Level 28 mmol/L (20-31) Anion Gap 7 (5-15) Blood Urea Nitrogen 14 mg/dL (9-23) Creatinine 0.97 mg/dL (0.700-1.30) Glomerular Filtration Rate Calc 77 mL/min (>90) BUN/Creatinine Ratio 14.4 (10.0-20.0) Serum Glucose 96 mg/dL (74-106) Hemoglobin A1c 4.8 % A1C (<5.7) Calcium Level 8.5 mg/dL (8.7-10.4) Vitamin B12 Level 641 pg/mL (211-911) Folic Acid 13.51 ng/mL (>5.38) Thyroid Stimulating Hormone (TSH) 4.11 uIU/mL (0.55-4.78) Lactic Acid Level 1.7 mmol/L (0.4-2.0) Test 11/02/24 16:32 11/02/24 15:44 11/02/24 14:50 Urine Color Yellow (Yellow) Urine Clarity Clear (Clear) Urine pH 5.5 (5.0-9.0) Urine Specific [place] 1.017 (1.001-1.035) Urine Protein Negative (Negative) Urine Ketones Negative (Negative) Urine Blood 1+ /uL (Negative) Urine Nitrite Negative (Negative) Urine Bilirubin Negative (Negative) Urine Urobilinogen Normal mg/dL (Negative) Urine Leukocyte Esterase Negative /uL (Negative) Urine RBC 4 /hpf (0 - 3) Urine Microscopic WBC 1 /HPF (0-3) Urine Squamous Epithelial Cells None seen /hpf (<5) Urine Bacteria None seen /hpf (None Seen) Urine Mucus Few (None Seen) Urine Glucose Normal mg/dL (Normal) Troponin I High Sensitivity < 3 ng/L (</=54) White Blood Count 4.2 10^3/uL (4.4-10.8) Red Blood Count 5.34 10^6/uL (4.5-5.90) Hemoglobin 16.2 g/dL (13.5-17.5) Hematocrit 47.2 % (41.0-53.0) Mean Corpuscular Volume 88.5 fL (80.0-100.0) Mean Corpuscular Hemoglobin 30.3 pg (28.0-32.0) Mean Corpuscular Hemoglobin Concent 34.2 g/dL (32.0-36.0) Red Cell Distribution Width 12.9 % (11.8-14.3) Platelet Count 209 10^3/uL (140-450) Mean Platelet Volume 8.2 fL (6.9-10.8) Neutrophils (%) (Auto) 58.1 % (37.0-80.0) Lymphocytes (%) (Auto) 33.6 % (10.0-50.0) Monocytes (%) (Auto) 5.3 % (0.0-12.0) Eosinophils (%) (Auto) 1.3 % (0.0-7.0) Basophils (%) (Auto) 1.7 % (0.0-2.0) Neutrophils # (Auto) 2.5 10 ^3/uL (1.6-8.6) Lymphocytes # (Auto) 1.4 10 ^3/uL (0.4-5.4) Monocytes # (Auto) 0.2 10 ^3/uL (0-1.3) Eosinophils # (Auto) 0.1 10 ^3/uL (0-0.8) Basophils # (Auto) 0.1 10 ^3/uL (0-0.2) Nucleated Red Blood Cells 0.3 % Total Bilirubin 1.7 mg/dL (0.2-1.0) Aspartate Amino Transferase (AST) 20 U/L (13-40) Alanine Aminotransferase (ALT) < 9 U/L (7-40) Alkaline Phosphatase 79 U/L (46-116) B-Type Natriuretic Peptide 127.26 pg/mL (0-100) Total Protein 7.3 g/dL (5.7-8.2) Albumin 4.5 g/dL (3.2-4.8) Other Laboratory Tests 11/03/24 03:44 11/02/24 14:50 Brief Hx & Hospital Course: 84-year-old male with a history of dementia who presents to the ED for chief complaint generalized weakness. Patient presents with daughter in-law who states patient has been having increasing weakness for the past month. [id number] states patient has been having decreased appetite, does not want to ambulate, stays in bed, and has been complaining of right buttock area pain for the past week. Patient was found to be septic, treated with Zithromax for possible PNA. Will discharge with Zithromax and Keflex for PNA and UTI. Operations or Procedures APPROVED REPORT EXAM: Two-dimensional and M-mode echocardiogram with Doppler and color Doppler. Blood Pressure: 123/67 mmHg INDICATION CHF RISK FACTORS Height: 5' 7", Weight: 149 DIMENSIONS LVDd 4.2 (3.8-5.7cm) LA (2D) 3.9 (1.9-4.0cm) Aortic Root 3.8 (2.0- 3.7cm) LVDs 3.2 (2.5-4.0cm) LA (MM) (1.9-4.0cm) Aortic Cusp Exc 1.3 (1.5- 2.0cm) EF (%) 45.0 (55-70%) Rt. Atrium 4.2 (1.9-4.0cm) Asc. Aorta cm IVSd 1.0 (0.7-1.1cm) RV (D) (1.8-2.4cm) PWd 1.0 (0.7-1.1cm) Mitral Valve Mitral Mitral Stenosis E wave 1.00m/s MV Mean GR. mmHg A wave 0.50m/s MV Peak GR. mmHg E/A ratio 2.0 2D MVA cm2 Aortic Valve Aortic Valve Aortic Stenosis V1 0.80m/s AO Mean GR. 4mmHg V2 1.30m/s AO Peak GR. 7mmHg LVOT Diameter 2.0 (1.8-2.4cm) Doppler FIDEL 1.93cm2 AI P 1/2 Time 550.45ms Tricuspid Valve TR Velocity 1.70m/s RVSP 23mmHg Conclusion lvef 50% RV enlarged biatrial enlargement mild aortic regurg Condition at Discharge: Poor Final Diagnosis/Problems List # Sepsis due to Viral PNA vs Gram Neg PNA - Zithromax - Lactic Acidosis and Tachycardic # Metabolic Encephalopathy - Possibly due to Sepsis # Lumbar Stenosis - Outpatient MRI # Goals of care discussion >18 mins FULL CODE Discharge Disposition: Home Discharge Instruct/Medications Diet: Regular Activity: No Restrictions, As Tolerated Follow Up/Referral: PCP in 1 week Medications: see med recc Scheduled Azithromycin (Azithromycin), 250 MG PO DAILY Cephalexin (Keflex Capsule), 500 MG PO TID Discharge Statement: "Patient was advised to return to the ER or call 911 if any headaches, dizziness, shortness of breath, chest pain, abdominal pain, bleeding, fevers, or worsening of medical condition. Patient was counseled about treatment plan, medications, possible side effects, patientverbalized understanding. All questions were answered to the best of my ability. This discharge took greater then 30 minutes in planning, reviewing documentation, counseling the patient, and discussing with other team members." ASSESSMENT ASSESSMENT Assessment Date of Service: Nov 04, 2024 Billing Provider: DAR LOPEZ MD Common Visit Codes: 62236-GLM/OBS DISCH DAY >30min DAR LOPEZ MD Nov 04, 2024 10:48
[2024-11-04] MEDS: IPRATROPIUM BROM 0.5 MG/2.5ML INH SOL NEB PRN (12:10)
[2024-11-04] MEDS: ALBUTEROL SULF 2.5 MG/0.5ML(0.5%) NEB SOLN NEB PRN (12:10)
== END 2024-11-04 14:20 | disposition home or self-care (01) | DRG 871 ==
LOC: ER 13:53 → OVERFLOW 23:19 → CENTRAL 11-03 03:16
PROVIDERS: ADMIT Internal Medicine; ATTEND Internal Medicine
DX: A41.50 Gram-negative sepsis, unspecified (principal); G93.41 Metabolic encephalopathy; J15.69 Pneumonia due to other Gram-negative bacteria; J12.9 Viral pneumonia, unspecified; E87.20 Acidosis, unspecified; N39.0 Urinary tract infection, site not specified; Z20.822 Contact with and (suspected) exposure to COVID-19; R62.7 Adult failure to thrive; I50.9 Heart failure, unspecified; I35.0 Nonrheumatic aortic (valve) stenosis; I05.0 Rheumatic mitral stenosis; F03.90 Unspecified dementia, unspecified severity, without behavioral disturbance, psychotic disturbance, mood disturbance, and anxiety; M54.16 Radiculopathy, lumbar region; M54.17 Radiculopathy, lumbosacral region; M48.07 Spinal stenosis, lumbosacral region; M48.061 Spinal stenosis, lumbar region without neurogenic claudication; Z90.49 Acquired absence of other specified parts of digestive tract; Z68.23 Body mass index [BMI] 23.0-23.9, adult
CPT/HCPCS: 36415; 71045; 72131; 72148; 74176; 80048; 80053; 81001; 82607; 82746; 83036; 83605; 83880; 84443; 84484; 85025; 87040; 87426; 87804; 93306; 94640; 96365; 97110; 97116; 97163; G0378